=== PATIENT | female | born 1940 | race Caucasian/White ===

== ENCOUNTER 2025-06-07 13:12 | Outpatient (AMB) | payer MEDICARE, MEDICAID, SELFPAY ==
--- OUTSIDE RECORDS SUMMARY | 2024-01-31 08:15 | XMS_ITS | Continuity of Care Document ---
Author Organization [facility] Address [address] [place] [address] Phone Care Team Providers Care Pattern Checker Name Role Phone Carlos ESPITIA, PIA, Amilcar DE LA FUENTE Unavailable U navailable Procedures Procedure Date Offic/outpt E&m Estab 5 Min Trial- Telem edicine CT & [place] Offic Cons New/estab Mod-hi 60- CT & [place] Duplex Scan-extrem Veins; Comp- CT & [place] Advance Directives Directive Yes / No Effective Date File Name Other Directive No 01/31/2024 N/A WARNING:The information contained in this section is historical and is provided for information only and does not constitute a legal document or any assurance that the information is still accurate. Please verify the information with the powers of the legal document before using it for clinical purposes. Encounters Encounter Description Practice Location Reason(s) For Visit Diagnoses Date Provider Providers Copied on Encounter Offic/outpt E&m Estab 5 Min Trial- Telemedicine [place] & [place] [facility], [address], [place], [id number], [place] tel:[phone] R - [place] - [place] Chronic venous hypertension (idiopathic) with other complication s of bilateral lower extremityCra mp and spasmPruritu s, unspecified 4 Carlos ESPITIA, PIA, SUDHAKAR Fitzgerald. [address], [facility] [address], [facility] [place], [id number] , [place]. tel:[phone] Referring Provider: Pricila Gottlieb, [address], [place], [address]. 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 [address] [place] [address], [place], [id number] , . tel:[phone] Referring Provider: Pricila Gottlieb, [address], [place], [address]. tel:[phone] [facility], [address] [place] [address] [address], [place], [id number], [place] tel:[phone] CV - [facility] Chronic venous hypertension (idiopathic) with other complication s of bilateral lower extremity 4 Carlso ESPITIA RVT, SUDHAKAR Fitzgerald. [address] [place] [address], [facility] [place], [id number] , [place]. tel:[phone] Referring Provider: Pricila Gottlieb, [address], [place], [address]. tel:[phone] Family History Family Member Type Diagnosis Age At Onset No Information Payers Payer name Insurance type Covered green party ID Bo rangel(s) [employer] Medicare CI [id number] Social History Type Description Quantity Date Captured Comments Alcohol Use Details Unknown Caffeine Use Details Unknown Tobacco Use Status No Information Smoking Status Former Smoker Non-Smoking Tobacco Use Details : No Details Available : No Details Available Sex Female Vital Signs Date / Time: Height Weight BMI Pulse Rate Blood Pressure Temperature Respiratory Rate Body Surface Area Head Circumference Head Circ. Percentile Wt./Jamshid. Percentile BMI percentile Pulse Ox Inhaled Ox 64.410 kg (142.00 lbs) 25.1 9 kg/m alise (2) Chief Complaint And Reason For Visit No Information Reason For Referral Reason For Referral No Information Plan Of Treatment Date Type Action Status Goal Tobacco cessation counseling completed Goal Tobacco cessation counseling completed Goal Diet education completed Referral Ordered: Weight management: Referral to physician timeframe: 3 Months (related to Body mass index (BMI) 25.0-25.9, adult) ordered History Of Present Illness Encounter Date Complaint History Of Prese nt Illness No Information Functional Status Date Functional Assessmen t No Information Instructions Date Instruction Additional Infor mation Patient education booklet given Related to Chronic venous hypertension (idiopathic) with other complications of bilateral lower extremity Pre and post instruc tions reviewed and provided Related to Chronic venous hypertension (idiopathic) with other complications of bilateral lower extremity Patient education booklet given Related to Varicose veins of bilateral lower extremities with other complications Pre and post instruc tions reviewed and provided Related to Varicose veins of bilateral lower extremities with other complications Diet education Related to Body mass index (BMI) 25.0-25.9, adult Giving Encouragement to exercise Related to Body mass index (BMI) 25.0-25.9, adult Lifestyle education Related to B olman mass index (BMI) 25.0-25.9, adult Assessments Type Assessment Date No Information Patient Care Teams Name Effective Dates (start - stop) Status Members No Information
--- NOTE | 2025-06-07 13:17 | A.PHYSOV_ITS ---
Vital Signs 06/07/25 13:24 Height 5 ft 3 in Weight 180 lb BMI 31.9 Intake Visit Reasons: NPV Beth Ref- right hip pain & sciatica Intake Note: Patient is a 84 year old female in office today as a new patient for right hip pain. Downstairs Maid Required: No Allergies lactose Allergy (Unknown, Verified 06/07/25 13:17) Unknown HPI Comments Details: History of Present Illness The patient is an 84-year-old individual presenting with nerve pain in the leg. The pain began approximately a month ago, predominantly affecting the right side and occasionally radiating to the rear end and down the leg. The patient notes exacerbation of pain during prolonged sitting or walking, such as during communication manager. Tramadol has been used for pain management, offering partial relief, and CBD cream has been applied with beneficial effects on sleep. Sleep disturbances are also due to frequent urination, related to bladder cancer. The patient has a background of fibromyalgia, with symptoms mainly in the neck and lower back, complicating the current pain assessment. Following smoking cessation a year ago, the patient has gained 40 pounds, which has limited physical activity. She finds that her symptoms limit her ability to perform her activities of daily living. We do have x-rays of the right hip and from the emergency department. I reviewed the referring provider's no prior to consultation. Pain Description - Onset: Approximately one month ago - Quality: Radiating pain from the right side to the rear end and occasionally down the leg - Exacerbating factors: Sitting, prolonged walking, and communication manager - Relieving factors: Tramadol and CBD cream [facility] Social History Alcohol intake: current Patient Tobacco Use Status: Former Tobacco user Review of Systems Narrative Review of Systems - Musculoskeletal: Reports pain in the right side radiating to the rear end and leg; denies sharp pain in the hip - Neurological: Reports occasional numbness and tingling in the leg - Genitourinary: Reports frequent urination due to bladder cancer - General: Reports difficulty sleeping due to pain and urination Physical Exam Exam Exam: Physical Exam Lumbar Spine: Examination of her lumbar spine, there is no visible swelling or deformity. She is tender to lower lumbar facets. She is otherwise nontender. Full range of motion of the lumbar spine. She does have an increase in pain with facet loading. Special Tests: Lhermittes sign was negative Heel Toe walk is normal Left straight leg raise: Negative Right straight leg raise: Negative Special tests Nessa test is negative Ganslen's test is negative SI Joint compression test negative Prabhakar test negative Piriformis stretch is negative Lower Extremities: Full range of motion bilateral lower extremities. She is nontender to greater trochanteric bursa. Not of her pain is elicited with hip movement. Neuro: Sensation: Intact to lower extremities bilaterally Strength L2 (Psoas): 5/5 on the left and 5/5 on the right. L3 (Quads): 5/5 on the left and 5/5 on the right. L4 (Ant tibialis): 5/5 on the left and 5/5 on the right. L5 (EHL) 5/5 on the left and 5/5 on the right. S1 (Gastroc): 5/5 on the left and 5/5 on the right. DTR L4: (Patellar) Left 1 Right 1 S1: (Achilles) Left 1 Right 1 Babinski Downgoing No pathologic clonus. No involuntary movement. Vital Signs: BMI result Body Mass Index 31.9 Assessment & Plan Assessment & Plan (1) Lumbar radiculopathy: Code(s): M54.16 - Radiculopathy, lumbar region Category: Medical (2) Lumbar spondylosis: Code(s): M47.816 - Spondylosis without myelopathy or radiculopathy, lumbar region Category: Medical Plan Pain Management - Affect: Pain impacts sleep and daily activities - Analgesia: Tramadol provides partial relief; CBD cream aids sleep - Adverse Effects: None reported - Activities of Daily Living: Pain limits walking and communication manager - Aberrant Drug Related Behaviors: None reported Plan Patient was informed and verbally consented to the use of an ambient scribe for clinic note documentation during this visit. 1. Nerve Pain In The Leg The patient is suspected to have nerve pain originating from the back, potentially due to a pinched nerve, as the hip examination did not reproduce the pain. An MRI of the lumbar spine is planned to confirm the diagnosis, and an x- ray of the back will be conducted to facilitate MRI approval. The patient will receive Ativan for the MRI procedure due to claustrophobia, and arrangements for transportation will be made. 2. Mild Arthritis In The Hip The hip x-ray revealed mild arthritis, but it is not considered symptomatic as the pain could not be reproduced during the examination. 3. Fibromyalgia The patient has a history of fibromyalgia, which primarily affects the neck and lower back, and may contribute to the current pain symptoms. 4. Bladder Cancer The patient reports frequent urination due to bladder cancer, which also affects sleep quality. Thank you for allowing me to participate in the care of your patient. Orders: Orders XR lumbar spine 4V min Today M54.9 - Dorsalgia, unspecified MR lumbar spine wo con Today M51.16 - Intervertebral disc disorders with radiculopathy, lumbar region Medications: New lorazepam (Ativan) 1 tab 1 hour prior to MRI 1 mg PO DAILY PRN 1 tab 0RF anxiety F40.240 - Claustrophobia Coding Level of Care Code Tele New Pt Level 4 (86956) Diagnoses Lumbar radiculopathy M54.16 Lumbar spondylosis M47.816
[2025-06-07 13:24] VITALS: BMI 31.9
--- OUTSIDE RECORDS SUMMARY | 2025-06-07 17:52 | XMS_ITS | Clinical Summary ---
Author Organization [facility] [address] [facility] [address] Address [address] [place] [address] Phone Care Team Providers Care Division Operations Specialist Name Role Phone Mari Shaver MD Primary Care Prov ider Allergies Active Allergy Reactions Criticality Noted Date Comments Lactose Diarrhea 05/11/2016 Lactose intolerance Other Runny nose 11/28/2022 SEASONAL ALLERGIES Medications multivitamin with minerals tablet TAKE 1 TABLET DAILY. 05/08/20 16 Active melatonin 5 mg tablet Take by mouth. Active ibuprofen 200 mg capsule Take 2 Tabs by mouth as needed. Active calcium carbonate-vit D3-min 600 mg calcium- 400 unit tablet TAKE DIRECTED. 05/08/20 16 Active biotin 1,000 mcg tablet,chewable Take by mouth Active gabapentin (NEURONTIN) 300 mg capsule TAKE 1 CAPSULE BY MOUTH EVERYDAY AT BEDTIME Active zinc sulfate (ZINCATE) 220 mg (50 mg elemental zinc) capsule Take 1 capsule (220 mg total) by mouth 1 (one) time each day. Active lactobacillus acidoph-l.bulgar 100 million cell granules in packet Take 1 packet by mouth. Active aspirin 81 mg EC tablet Take 1 tablet (81 mg total) by mouth 1 (one) time each day. Active psyllium (METAMUCIL) 3.4 gram packet Take 1 packet by mouth 1 (one) time each day. Active simvastatin (ZOCOR) 20 mg tablet TAKE 1 TABLET BY MOUTH EVERYDAY AT BEDTIME 90 tablet 1 12/09/19 25 Active Trelegy Ellipta 200-62.5-25 mcg inhaler INHALE 1 PUFF INTO THE LUNGS DAILY FOR 30 DAYS. 60 each 11 03/16/20 25 Active cran/vitC/mannos e/inul/bromeln (CYSTEX UTI PREBIOTIC ORAL) Take by mouth. Active estradioL (ESTRACE) 0.01 % (0.1 mg/gram) vaginal cream Insert 2 g into the vagina 1 (one) time each day. Active azelastine (ASTELIN) 137 mcg (0.1 %) nasal sprayIndications :Subacute maxillary sinusitis Administer 1 spray into each nostril 2 (two) times a day. Use in each nostril as directed 30 mL 12 04/14/20 25 026 Active bismuth subsalicylate (PEPTO BISMOL) 262 mg/15 mL suspension Take 15 mL by mouth every 6 (six) hours if needed for indigestion. Active levothyroxine (SYNTHROID, LEVOTHROID) 100 mcg tablet TAKE 1 TABLET BY MOUTH EVERY DAY 90 tablet 1 05/14/20 25 Active traMADoL (ULTRAM) 50 mg tabletIndication s:Fibromyalgia Take 1 tablet (50 mg total) by mouth 3 (three) times a day if needed for severe pain. Max Daily Amount: 150 mg 20 tablet 05/24/20 25 Active levothyroxine (SYNTHROID, LEVOTHROID) 100 mcg tablet TAKE 1 TABLET BY MOUTH EVERY DAY 90 tablet 1 11/20/19 25 025 Discontinued traMADoL (ULTRAM) 50 mg tabletIndication s:Fibromyalgia Take 1 tablet (50 mg total) by mouth 3 (three) times a day if needed for severe pain. Max Daily Amount: 150 mg 20 tablet 04/15/20 25 025 Discontinued predniSONE (DELTASONE) 20 mg tablet Take 3 tabs (60mg) daily for 3 days, then take 2 tabs (40mg) daily for 3 days, then take 1 tab (20mg) daily for 3 days. 18 tablet 05/13/20 25 025 predniSONE (DELTASONE) 20 mg tablet Take 2 tablets (40 mg total) by mouth 1 (one) time each day for 5 days. 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 S/p ERCP 03/2019 Angiodysplasia of colon with hemorrhage 06/26/20 16 Diverticulosis of large intestine without hemorr melissa 06/26/2016 Sebaceous cyst of breast 08/25/2015 Smoking greater than 40 pack years 05/06/2015 Knee pain, bilateral 07/21/2014 Overview (04/13/2024): Bakers cyst Migraine 05/10/2014 Overview (04/13/2024): Onset age teens. 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 No histologic evidence of Mchugh's on biopsies 2013. Consider repeat upper endoscopy 2018. Intraductal papilloma of breast 08/17/2013 [place] (hard of hearing) 08/31/2010 Overview (04/13/2024): Has hearing aids Osteopenia 08/30/2009 Diverticulosis 08/31/2008 IBS (irritable bowel syndrome) 08/31/2008 Dyslipidemia 08/31/2008 Overview (04/13/2024): Last LDL checked on 05/27/2008 was 83, HDL was 75. Gallstones 08/18/2008 Fibromyalgia 08/17/2008 Overview (04/13/2024): Onset age 60. Hypothyroidism 08/17/2008 Depression 08/17/2008 Encounters Date Type Department Care Team Description 05/24/2025 Telephone Adult [address] [address] Mari Shaver MD 05/13/2025 9:45 AM EDT Office Visit [address] [phone] Tomer Kerr PA Right hip pain (Primary Dx); Right sided sciatica; Malignant neoplasm of urinary bladder, unspecified site (CMS/HCC V24, CMS/HCC V28); Lower abdominal pain 05/05/[address] [phone] Mari Shaver MD 04/14/2025 11:00 AM EDT Office Visit [address] [phone] Mari Shaver MD Irritable bowel syndrome with diarrhea (Primary Dx); Hypothyroidism, unspecified type; Fibromyalgia; Malignant neoplasm of urinary bladder, unspecified site (CMS/HCC V24, CMS/HCC V28); Atrophic vaginitis; Recurrent UTI; Subacute maxillary sinusitis 04/05/2025 Lab Requisition [facility] - Main Lab [address] [facility] [place] [address] Aldo Benitez MD Urinary tract infection, site not specified; Dysuria 03/31/2025 10:40 AM EDT Consult Gastroenterology - [place] [address] [facility] [address] [facility] [address] [place] [address] Melvin Yuen MD Irritable bowel syndrome with diarrhea (Primary Dx); Chronic diarrhea 03/24/[address] [phone] Mari Shaver MD 03/11/2025 Telephone Adult [address] [phone] Sophie Aaron NP from Last 3 Months Immunizations Immunization Administration Dates Next Due Influenza trivalent, 0.5mL ( Fluad) 65yo and older 04/14/2025 Influenza trivalent, 0.5mL ( Fluzone High-dose) 65yo and older 02/28/2023,03/23/2022,04/21/2021,03/24,03/30/2019,05/01/2018,04/15/2017 ,05/01/2016,04/18/2015,04/12/2014,10/03/2013,04/01/2012,04/26/2010, 9 Moderna (age 6mo & older) Bi valent, COVID-19, 0.5 mL or 0.25 mL dosage 02/28/2023 Moderna SARS-CoV-2 COVID-19, mRNA, LNP-S, preservative free 07/17/2021,09/02/2020,08/12/2020 Pneumococcal conjugate 13 va lent (Prevnar 13, PCV13) 2mo and older 04/18/2015 Pneumococcal conjugate 20 va lent (Prevnar 20, PCV 20) 2mo and older 05/07/2023 Pneumococcal polysaccharide 23 valent (Pneumovax 23) 2yo and older 04/14/2008 RSV, bivalent, protein subun it RSVpreF, 0.5mL, Preservative Free (Arexvy) 50yo and older 12/03/2023 Td Tetanus diptheria (Tdvax) 7yo and older 11/13/2021,08/31/2010 Zoster recombinant (Shingrix ) 19yo and older 11/13/2019,09/02/2019 Surgical History Surgery Date Site/Laterality Comments OTHER SURGICAL HISTORY PROCEDURE: MN STAB PHLEBT VARICOSE VEINS 1 XTR > 20 INCS ESOPHAGOGASTRODUODENOSCOPY 2010 PROCEDURE: MN EGD TRANSORAL BIOPSY SINGLE/MULTIPLE; COMMENT: SSBE; no dysplasia. COLONOSCOPY 2010 PROCEDURE: HISTORICAL COLONOSCOPY; COMMENT: normal random bx. ESOPHAGOGASTRODUODENOSCOPY 2013 PROCEDURE: MN EGD TRANSORAL BIOPSY SINGLE/MULTIPLE; COMMENT: [facility]; Dr. Pro. Bx neg for Barretts. COLONOSCOPY 2016 PROCEDURE: HISTORICAL COLONOSCOPY; COMMENT: Diverticulosis and angiodysplasia. UPPER GASTROINTESTINAL ENDOSCOPY 2016 PROCEDURE: MN UPPER GI ENDOSCOPY PERFORMED; COMMENT: Normal BREAST BIOPSY 2014ish Left PROCEDURE: BX BREAST; PERC NEEDLE CORE W/IMAG GUID; COMMENT: lt. breast bx-benign BREAST SURGERY 2011sih Left PROCEDURE: MN UNLISTED PROCEDURE BREAST; COMMENT: removed cyst from lt.breast OTHER SURGICAL HISTORY 04/03/2019 PROCEDURE: MN ERCP REMOVE FOREIGN BODY/STENT BILIARY/PANC DUCT OTHER SURGICAL HISTORY 03/2019 N/A PROCEDURE: MN LAPS SURG CHOLECSTC W/EXPL COMMON DUCT; COMMENT: ERCP for ductal clearance of stones Medical History Medical History Date Comments Fibromyalgia DX:Fibromyalgia Depression DX:Depression Diverticulosis DX:Diverticulosi s [place] (hard of hearing) 08/31/2010 DX:[place] (claire rd of hearing) Migraine 05/10/2014 DX:Migraine; COM MENT: Onset age teens. Knee pain, bilateral 07/21/2014 DX:Knee jt n, bilateral; COMMENT: Bakers cyst Osteopenia 08/30/2009 DX:Osteopenia Intraductal papilloma of breast 08/17/2013 DX:Intraductal papilloma of breast IBS (irritable bowel syndrome) 08/31/2008 D X:IBS (irritable bowel syndrome) Hypothyroidism 08/17/2008 DX:Hypothyroidis m Gallstones 08/18/2008 DX:Gallstones Dyslipidemia 08/31/2008 DX:Dyslipidemia; COMMENT: Last LDL checked on 05/27/2008 was 83, HDL was 75. Macrocytosis 04/12/2020 DX:Macrocytosis Family History Medical History Relation Name Comments No Known Problems Brother 1 No Known Problems Brother 2 No Known Problems Daughter 1 No Known Problems Daughter 2 Throat cancer Father Arthritis Mother rheumatoid Basal cell carcinoma Mother Colon cancer Neg Hx Stomach cancer Neg Hx Relation Name Status Comments Brother 1 Alive Brother 2 Alive Daughter 1 Alive Daughter 2 Alive Father (Age 88) Mother (Age 90) Social History Tobacco Use Types Packs/Day Years Used Date Smoking Tobacco: Former Cigarettes 1 66.3 0 1957 - 12/02/2023 Smokeless Tobacco: Never Tobacco Cessation:Counseling Given: Not Answered Alcohol Use Standard Drinks/Week Comments Yes 0 (1 standard drink = 0.6 oz pur e alcohol) social Housing Instability Answer Date Recorde d Are you worried that in the next 2 months you may not have stable housing? No 10/11/2024 Food Access & Nutrition Answer Date Rec orded Do you have access to a vari ety of food including fruits and vegetables? Yes 10/11/2024 Health Literacy Answer Date Recorded How often do you need to hav e someone help you when you read instructions, pamphlets, or other written material from your doctor or pharmacy? Never 10/11/2024 Caregiver: How often do you need to have someone help you when you read instructions, pamphlets, or other written material from your doctor or pharmacy? Not on file 10/11/2024 Financial Risk Answer Date Recorded How hard is it for you to pa y for the very basics like food, housing, medical care, and air conditioning / heating? Somewhat hard 10/11/2024 Transportation Answer Date Recorded Has the lack of transportati on kept you from meetings, work, or from getting things needed for daily living? No Has the lack of transportati on kept you from medical appointments or from getting medications? No 10/11/2024 Social Isolation Answer Date Recorded How often do you feel lonely or isolated from th ose around you? Rarely 10/11/2024 Food Risk Answer Date Recorded Within the past 12 months we worried whether our food would run out before we got money to buy more. Never true 10/11/2024 Within the past 12 months th e food we bought just didn't last and we didn't have money to get more. Never true 10/11/2024 Dependent Care Answer Date Recorded Do you need help finding or paying for care for your loved ones. For example, child care sitter or elderly care for an older adult? No 10/11/2024 Education Answer Date Recorded Do you think completing more education or training, like finishing a GED, going to college, or learning a trade, would be helpful for you? No 10/11/2024 Employment and Income Answer Date Recor ded During the last four weeks, have you been actively looking for work? No 10/11/2024 Living Situation Answer Date Recorded What is your living situation? Unrecognized valu e 10/11/2024 Comments No Sex and Gender Information Value Date Recorded Sex Assigned at Not on file Legal Sex Female 4:19 AM EST Gender Identity Not on file Sexual Orientation Not on file Obstetrics History Last Filed Vital Signs Vital Sign Reading Time Taken Comments Blood Pressure 122/65 05/13/2025 9:58 AM EDT Pulse 62 05/13/2025 9:58 AM EDT Temperature 36.8 C (98.2 F) 04/14/2025 10:58 AM EDT Respiratory Rate 20 10/23/2024 9:33 AM EDT Oxygen Saturation 96% 10/23/2024 9:33 AM EDT Inhaled Oxygen Concentration - - Weight 85 kg (187 lb 6.4 oz) 05/13/2025 9:58 AM EDT Height 160 cm (5' 3 ) 05/13/2025 9:58 AM EDT Body Mass Index 33.2 05/13/2025 9:58 AM EDT Plan of Treatment Health Maintenance Due Date Last Done Comments Medicare Annual Wellness Visit 06/17/2022 Social Influencers of Health Screening 10/11/2025 10/11/2024 Falls Risk Assessment 10/13/2025 10/13/2024 Cholesterol Screening (Lipid Panel) 10/14/2029 10/14/2024, 10/30/2023 DTaP,Tdap,and Td Vaccines (3 - Td or Tdap) 11/14/2031 11/13/2021, 08/31/2010 Osteoporosis Screening (Bone Density Screening) 12/24/2034 12/24/2024, 01/09/2024, 01/09/2024, Additional history exists Zoster Vaccines Completed 11/13/2019, 09/02/2019 COVID-19 Vaccine Discontinued 02/28/2023, 09/2021, 09/02/2020, Additional history exists Pneumococcal Vaccine: 50+ Years Completed 05/07/2023, 04/18/2015, 04/14/2008 RSV Immunization Adult Patients Completed 12/03/2023 Depression Screening Completed 09/21/2024 Influenza Vaccine Completed 04/14/2025, , 03/23/2022, Additional history exists HIB Vaccines Aged Out No longer eligi ble based on patient's age to complete this topic HPV Vaccines Aged Out No longer eligi ble based on patient's age to complete this topic Hepatitis A Vaccines Aged Out No long er eligible based on patient's age to complete this topic Hepatitis B Vaccines Aged Out No long er eligible based on patient's age to complete this topic IPV Vaccines Aged Out No longer eligi ble based on patient's age to complete this topic MMR Vaccines Aged Out No longer eligi ble based on patient's age to complete this topic Meningococcal ACWY Vaccine Aged Out N o longer eligible based on patient's age to complete this topic Meningococcal B Vaccine Aged Out No l onger eligible based on patient's age to complete this topic RSV Immunization Patients Under 20 months Aged Out No longer eligible based on patient's age to complete this topic Varicella Vaccines Aged Out No longer eligible based on patient's age to complete this topic Procedures Procedure Name Priority Date/Time Associated Diagnosis Comments CULTURE URINE Routine 04/05/2025 4:00 PM EDT Urinary tract infection, site not specified Dysuria CULTURE URINE Routine 03/09/2025 11:40 AM EDT Dysuria BD BONE DENSITY DXA AXIAL SKELETON Routine 12/24/2024 3:18 PM EDT Osteoporosis, unspecified osteoporosis type, unspecified pathological fracture presence LIPID PANEL WITH REFLEX TO DIRECT LDL Routine 10/14/2024 10:26 AM EDT Routine general medical examination at a health care facility from Last 3 Months or Most Recently Relevant to Health Maintenance Results * Culture urine (04/05/2025 4:00 PM EDT) Only the most recent of2 resultswithin the time period is included. Culture, Urine 50,000-99,000 CFU/mL Mixed urogenital nandini, no uropathogens present. Suggest repeat specimen if clinically indicated. 04/06/2025 1:25 PM EDT [facility] Urine Urine specimen obtained by clean catch procedure / Unknown 04/05/2025 4:00 PM EDT 04/05/2025 6:57 PM EDT us Aldo Benitez MD LAB MICROBIOLOGY - GENERA L ORDERABLES Final Result [facility] [address] [place] [address], [place] [phone] * BD Bone Density DXA Axial Skeleton (12/24/2024 3:18 PM EDT) Anatomical Region Laterality Modality Wrist, Hip, L-spine Bone Densito metry 12/28/2024 5:03 PM EDT Impressions 12/28/2024 5:04 PM EDT Osteopenia. Telerad CAROLE ([id number]) -------- FINAL REPORT -------- Dictated By: Saima Alberts Dictated Date: 12/28/2024 17:03 ET Assigned Physician: Saima Alberts Reviewed and Electronically Signed By: Saima Alberts Signed Date: 12/28/2024 17:04 ET Workstation ID: [id number] Transcribed By: Self Edit Transcribed Date: 12/28/2024 17:03 ET Narrative 12/28/2024 5:04 PM EDT History: Low estrogen state due to menopause. Parent hip fracture. Fibromyalgia. Former smoker. Comparison: 01/09/24 Findings: Bone densitometry is performed utilizing dual energy x-ray absorptiometry (DXA) in the [employer] unit. The lumbar spine and proximal femora are evaluated in the AP projection. The FRAX questionaire was completed. The results indicate low bone mass (osteopenia), with a left femoral neck T- score of -1.6. The Z score is 0.4, indicating bone mineral density within the range of normal for age. There has been a small, statistically significant decrease in bone mineral density in the spine since the previous study. The detailed DEXA report will be mailed to the referring physician's office. DualFemur FRAX: 10-year Probability of Fracture: Major Osteoporotic 18.8 percent Hip 9.8 percent. Procedure Note Saima Alberts MD - 12/28/2024 History: Low estrogen state due to menopause. Parent hip fracture.Fibromyalgia. Former smoker. Comparison: 01/09/24 Findings: Bone densitometry is performed utilizing dual energy x-ray absorptiometry(DXA) in the [employer]urity unit. The lumbar spine and proximal femora areevaluated in the AP projection. The FRAX questionaire was completed. The results indicate low bone mass (osteopenia), with a left femoral neckT-score of -1.6. The Z score is 0.4, indicating bone mineral densitywithin the range of normal for age. There has been a small, statistically significant decrease in bone mineraldensity in the spine since the previous study. The detailed DEXA reportwill be mailed to the referring physician's office. DualFemur FRAX: 10-year Probability of Fracture: Major Osteoporotic 18.8percent Hip 9.8 percent. IMPRESSION: Osteopenia. Telerad CAROLE ([id number]) -------- FINAL REPORT -------- Dictated By: Saima Alberts Dictated Date: 12/28/2024 17:03 ET Assigned Physician: Saima Alberts Reviewed and Electronically Signed By: Saima Alberts Signed Date: 12/28/2024 17:04 ET Workstation ID: [id number] Transcribed By: Self Edit Transcribed Date: 12/28/2024 17:03 ET Mari Shaver MD IMG DXA PROCEDURES Final Result * Lipid panel with reflex to direct LDL (10/14/2024 10:26 AM EDT) Cholesterol 194 0 - 200 mg/dL LAB CHEMISTRY METHOD 10/14/2024 3:18 PM [facility] Triglycerides 108 0 - 150 mg/dL LAB CHEMISTRY METHOD 10/14/2024 3:18 PM [facility] HDL 81 >=40 mg/dL LAB CHEMISTRY METHOD 10/14/2024 3:18 PM [facility] LDL Calculated 91 0 - 100 mg/dL LAB CHEMISTRY METHOD 10/14/2024 3:18 PM [facility] VLDL Cholesterol Sudhir 21.6 mg/dL LAB CHEMISTRY METHOD 10/14/2024 3:18 PM [facility] Non HDL Chol. (LDL+VLDL) 113 <145 mg/dL LAB CHEMISTRY METHOD 10/14/2024 3:18 PM [facility] Chol/HDL Ratio 2.4 0.0 - 4.4 LAB CHEMISTRY METHOD 10/14/2024 3:18 PM [facility] Blood Venous blood specimen / Unknown Venipuncture / Unknown 10/14/2024 10:26 AM EDT 10/14/2024 10:26 AM EDT Mari Shaver MD LAB BLOOD ORDERABL ES Final Result [facility] [address] [place] [address], from Last 3 Months or Most Recently Relevant to Health Maintenance Insurance [employer] MEDICA[place] - [place] Care Teams Division Operations Specialist Relationship Specialty Start Date End Date Mari Shaver MD [address] [place] [phone] PCP - General Internal Medicine 06/02/21
--- OUTSIDE RECORDS SUMMARY | 2025-06-07 17:52 | XMS_ITS | Encounter Summary ---
Author Organization [facility] Address [address] [place] [address] Care Team Providers Care Hoisting Pile Driving Engineer Name Role Phone Mari Shaver MD Primary Care Prov ider Encounter Details Date Type Department Care Team (Late st Contact Info) Description 04/05/2025 Lab Requisition [facility] - Main Lab [address] [facility] [place] [address] Aldo Benitez MD [address] [place] [phone] Urinary tract infection, site not specified; Dysuria Social History Tobacco Use Types Packs/Day Years Used Date Smoking Tobacco: Former Cigarettes 1 66.3 0 1957 - 12/02/2023 Smokeless Tobacco: Never Alcohol Use Standard Drinks/Week Comments Yes 0 [...] do you feel lonely or isolated from ose around you? Rarely 10/11/2024 Food Risk [...] for your loved ones. For example, child and adolescent psychiatrist or elderly care for an older adult? [...] on file Sexual Orientation Not on file documented as of this encounter Plan of Treatment Not on file documented as of this encounter Procedures Procedure Name Priority Date/Time Associated Diagnosis Comments CULTURE URINE Routine 04/05/2025 4:00 PM EDT Urinary tract infection, site not specified Dysuria documented in this encounter Results * Culture urine (04/05/2025 4:00 PM EDT) Culture, Urine 50,000-99,000 CFU/mL Mixed urogenital nandini, no uropathogens present. Suggest repeat specimen if clinically indicated. 04/06/2025 1:25 PM EDT [facility] Urine Urine specimen obtained by clean catch procedure / Unknown 04/05/2025 4:00 PM EDT 04/05/2025 6:57 PM EDT us Aldo Benitez MD LAB MICROBIOLOGY - GENERA L ORDERABLES Final Result [facility] [address] [place] [address], documented in this encounter Visit Diagnoses Diagnosis Urinary tract infection, site not specified Dysuria documented in this encounter Additional Health Concerns Assessment Noted Time PHQ-9 Depression Total Score: 0 09/22/19 25 8:07 PM EDT documented as of this encounter Care Teams Hoisting Pile Driving Engineer Relationship Specialty Start Date End Date Mari Shaver MD [address] [place] [id number] PCP - General Internal Medicine 06/02/21 documented as of this encounter
--- OUTSIDE RECORDS SUMMARY | 2025-06-07 17:52 | XMS_ITS | Encounter Summary ---
Author Organization [facility] Address [address] [place] [address] Care Team Providers Care Mold Repair Technician Name Role Phone Mari Shaver MD Primary Care Prov ider Reason for Visit * Reason Onset Date Comments Med Refill 05/24/2025 Encounter Details Date Type Department Care Team ([facility] st Contact Info) Description 05/24/2025 Telephone Adult Medicine - [place] [address] [place] [phone] Mari Shaver MD [address] [place] [address] Social History Tobacco Use Types Packs/Day Years [...] care for your loved ones. For example, children's institution attendant or elderly care for an older adult? [...] on file documented as of this encounter Ordered Prescriptions Prescription Sig Dispense Quantity Refills Last Filled Start Date End Date predniSONE (DELTASONE) 20 mg tablet Take 2 tablets (40 mg total) by mouth 1 (one) time each day for 5 days. 10 each 05/24/2025 documented in this encounter Progress Notes * Fariba Pozo LPN - 05/26/2025 11:25 AM EST Message left for patient that medication was ordered * CAROLE Barrow - 05/24/2025 5:05 PM EST Prednisone sent * Fariba Pozo LPN - 05/24/2025 2:34 PM EST Patient requesting re fill on prednisone Just finished taper dose and states that it works better than Tramadol. States she has not heard from physiatry, states she leaves messages and no-one answers phone, goes to voice mail I tried calling office and could not get through to anyone Message left with Dr Eileen CARVAJAL Finished taper dose 05/21 (Requesting even a smaller dose ) * Venus Canales - 05/24/2025 2:28 PM EST Pt needs another script while waiting to get into Family Physiatry * Venus Canales - 05/24/2025 2:25 PM EST Refills on Current Medication List MED NAME: prednisone PREFERRED PHARMACY: [facility]/pharmacy [address] [place] [address] Patient would like script to be: E-PRESCRIBED/FAXED TO [facility] WHEN WAS THE PATIENT'S LAST APPOINTMENT IN ADULT MEDICINE? 05/13/25 WHEN WAS THE LAST TIME THE PATIENT SAW THEIR PCP? 04/14/25 Does patient have an upcoming appointment? Pt will call back (THE MEDICATION REQUESTED IS ON THE MED LIST ABOVE) All of the medications requested were on the CURRENT MEDS list Did you check the Pharmacy information above?: yes Patient wants: 30-day supply Is this a mail order prescription request?: no If the refill is from a FAXED refill request what is the RX # listed on the fax? not applicable Patients current insurance carrier is: Payor: [employer] / Plan: [employer] [facility] MEDICARE ADVANTAGE / Product Type: *No Product type* / Insurance ID #: @[id number]@ documented in this encounter Plan of Treatment Not on file documented as of this encounter Visit Diagnoses Not on filedocumented in this encounter Additional Health Concerns Assessment Noted Time PHQ-9 Depression Total Score: 0 09/22/19 25 8:07 PM EDT documented as of this encounter Care Teams Mold Repair Technician Relationship Specialty Start Date End Date Mari Shaver MD [address] [place] [id number] PCP - General Internal Medicine 06/02/21 documented as of this encounter
--- OUTSIDE RECORDS SUMMARY | 2025-06-07 17:52 | XMS_ITS | Encounter Summary ---
Author Organization [facility] [address] Address [address] [place] [address] Care Team Providers Care Inverted Block Operator Name Role Phone Mari Shaver MD Primary Care Prov ider Encounter Details Date Type Department Care Team (Late st Contact Info) Description 07/24/2024 Lab Requisition [facility] - Main Lab [address] [place] [address] Aldo Benitez MD [address] [facility] [address] [place] [phone] Personal history of malignant neoplasm of bladder Social History Tobacco Use Types Packs/Day Years Used Date Smoking Tobacco: Former Cigarettes 1 66.3 0 1957 - 12/02/2023 Smokeless Tobacco: Never Alcohol Use Standard Drinks/Week Comments Yes 0 (1 standard drink = 0.6 oz pur e alcohol) Comments No Sex and Gender Information Value Date Recorded Sex Assigned at Not on file Legal Sex Female 4:19 AM EST Gender Identity Not on file Sexual Orientation Not on file documented as of this encounter Plan of Treatment Not on file documented as of this encounter Visit Diagnoses Diagnosis Personal history of malignant neoplasm of bladder documented in this encounter Care Teams Inverted Block Operator Relationship Specialty Start Date End Date Mari Shaver MD [address] [facility] [place] [address] PCP - General Internal Medicine 06/02/21 documented as of this encounter
--- OUTSIDE RECORDS SUMMARY | 2025-06-07 17:52 | XMS_ITS | Encounter Summary ---
Author Organization [facility] Address [address] [place] [address] Care Team Providers Care Assistant Operator Name Role Phone Mari Shaver MD Primary Care Prov ider Encounter Details Date Type Department Care Team (Late st Contact Info) Description 07/24/2024 Lab Requisition [facility] - Main Lab [address] [facility] [place] [address] Aldo Benitez MD [address] [facility] [address] [place] [phone] Personal history of malignant neoplasm of bladder [...] Procedure Name Priority Date/Time Associated Diagnosis Comments AP OUTSIDE CONSULT Routine 07/16/2024 12 :00 AM EST Personal history of malignant neoplasm of bladder documented in this encounter Results * Anatomic pathology outside consult (07/16/2024 12:00 AM EST) Final Diagnosis A. Urine, Voided, ([id number]): Negative for high grade urothelial carcinoma. Results of [employer] fluorescence in situ hybridization (FISH) testing: CEP3: Normal CEP7: Normal CEP17: Normal LSI 9p21: Normal Interpretation: Normal profile Controls stained appropriately. Note: The results are intended as a screening device and should be interpreted in association with other clinical and pathological findings. 08/04/2024 9:09 AM [facility] Clinical Information History of bladder neoplasm (malignant) Z85.51 Cytology/Fish 08/04/2024 9:09 AM [facility] Gross Description A. Urine, Voided, ([id number]): Received 1 TP (CYTO) 1 TP (FISH) 08/04/2024 9:09 AM [facility] Disclaimer Unless otherwise specified, all tissue is 10% NB formalin fixed and paraffin embedded. Technical pathology services provided by [facility] [address] [facility] [address] [address] (CLIA #[id number]/Carmen Juares MD, Bead Preparer) 08/04/2024 9:09 AM [facility] Tissue Urine specimen from urethra / Unknown 07/16/2024 07/24/2024 10:05 AM EST us Aldo Benitez MD LAB PATHOLOGY ORDERABLES Final Result [facility] [address] [place] [address], documented in this encounter Visit Diagnoses Diagnosis Personal history of malignant neoplasm of bladder documented in this encounter Care Teams Assistant Operator Relationship Specialty Start Date End Date Mari Shaver MD [address] [place] [id number] PCP - General Internal Medicine 06/02/21 documented as of this encounter
== END 2025-06-07 13:49 | disposition home or self-care (01) ==
LOC: HO.HPHYS 13:13
PROVIDERS: PCP Internal Medicine; Visit Provider Physician Assistant
DX: M54.16 Radiculopathy, lumbar region (principal); M47.816 Spondylosis without myelopathy or radiculopathy, lumbar region
CPT/HCPCS: 99204

== ENCOUNTER → 2025-06-07 13:12 | Outpatient (BNVA) | payer MEDICARE, MEDICAID, SELFPAY | PROVIDERS: PCP Internal Medicine; Visit Provider Physician Assistant | DX: M54.16 Radiculopathy, lumbar region (principal); M47.816 Spondylosis without myelopathy or radiculopathy, lumbar region; M79.7 Fibromyalgia; C67.9 Malignant neoplasm of bladder, unspecified | CPT/HCPCS: 99202 ==